=== PATIENT | female | born 1985 | race Caucasian/White ===

== ENCOUNTER 2018-09-03 15:52 | Emergency (ER) | payer MEDICAID ==
[2018-09-03] MEDS: DIAZEPAM 5 MG TAB PO (17:00)
[2018-09-03] MEDS: DEXAMETHASONE 10 MG/ML 1 ML INJ IM (17:04)
== END 2018-09-03 18:16 | disposition home or self-care (01) ==
LOC: FTE 15:52
DX: M43.6 Torticollis (principal)
CPT/HCPCS: 72040; 96372; 99284-25

== ENCOUNTER 2019-02-03 12:09 | Emergency (ER) | payer MEDICAID | END 2019-02-03 13:49 | disposition home or self-care (01) | LOC: FTE 12:09 | DX: L03.213 Periorbital cellulitis (principal) | CPT/HCPCS: 99283; Z7502 ==